=== PATIENT | male | born 1960 | race Caucasian/White ===

== ENCOUNTER 2016-06-06 08:47 | Emergency (ER) | payer OTHER ==
[2016-06-06 09:10] VITALS: BP 178/108
--- NOTE | 2016-06-06 09:37 | UC ---
FLU HPI - HPI Summary HPI Summary: fever, body aches, sinus pain, mild ST, dry cough for past 4 days. Fever to 102. "I feel terrible." Fatigue. Poor appetite. No vomiting or diarrhea - History of Current Complaint Chief Complaint: UCRespiratory Stated Complaint: SINUS,SORE THROAT Time Seen by Provider: 06/06/16 09:01 Hx Obtained From: Patient Onset/Duration: Gradual Onset, Lasting Days - 4 Severity Currently: Moderate Severity Initially: Moderate Associated Signs & Symptoms: Positive: Fever, T Max - 102, Myalgia, Cough, Nasal Congestion, Headache Related Hx: Possible Flu/Infectious Exposure - "everyone sick at work" - Risk Factors Influenza Risk Factors: Negative - Allergy/Home Medications Allergies/Adverse Reactions: Allergies Allergy/AdvReac Type Severity Reaction Status Date / Time No Known Allergies Allergy Verified 06/06/16 08:52 Home Medications: Home Medications [id number] [Night Time Multi-Symptom] 1 cap PO BEDTIME PRN 06/06/16 [History Confirmed 06/06/16] Phenylephrine-Chlorpheniramine [[place]-[place] Plus Cold &] 1 tab PO PRN 06/06/16 [History] Vit D 1 tab PO DAILY 06/06/16 [History] metFORMIN* [Glucophage*] 1,000 mg PO BID 06/06/16 [History Confirmed 06/06/16] PMH/Surg Hx/FS Hx/Imm Hx Endocrine History Of: Reports: Diabetes - Surgical History Surgical History: Yes Surgery Procedure, Year, and Place: LEFT KNEE SURGERY - Family History Known Family History: Positive: Diabetes - Social History 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 Lives: With Family Alcohol Use: Occasionally Substance Use Type: None Smoking Status (MU): Never Smoked Tobacco Type: Smokeless Tobacco - Immunization History Most Recent Influenza Vaccination: NOT THIS SEASON Review of Systems Constitutional: Fever, Chills, Fatigue Skin: Negative Eyes: Negative ENT: Sore Throat, Nasal Discharge Respiratory: Cough Cardiovascular: Negative Gastrointestinal: Negative Genitourinary: Negative Motor: Negative Neurovascular: Negative Musculoskeletal: Myalgia Neurological: Headache Psychological: Negative All Other Systems Reviewed And Are Negative: Yes Physical Exam Triage Information Reviewed: Yes Appearance: Well-Appearing, No Pain Distress, Well-Nourished Vital Signs: Initial Vital Signs Temp 99 F 06/06/16 08:54 Pulse 100 01/15/17 08:54 Resp 16 06/06/16 08:54 BP 178/108 06/06/16 08:54 Pulse Ox 97 06/06/16 08:54 Vital Signs Reviewed: Yes Eye Exam: Normal Eyes: Positive: Conjunctiva Clear ENT Exam: Normal Neck exam: Normal Neck: Positive: Supple, Nontender, No Lymphadenopathy Respiratory Exam: Normal Respiratory: Positive: Lungs clear Cardiovascular Exam: Normal Abdomen Description: Positive: Nontender Musculoskeletal Exam: Normal Neurological Exam: Normal Neurological: Positive: Alert, Muscle Tone Normal Psychological Exam: Normal Diagnostics - Laboratory Diagnostic Studies Completed/Ordered: influenza positive Flu Course/Dx - Differential Dx/Diagnosis Differential Diagnosis/HQI/PQRI: Influenza, Upper Respiratory Infection Provider Diagnoses: influenza Discharge - Discharge Plan Condition: Stable Disposition: HOME Prescriptions: Oseltamivir CAP* [Tamiflu CAP*] 75 mg PO BID #14 cap Patient Education Materials: Influenza (ED) Forms: *Work Release Referrals: BRANDON Fountain [Primary Care Provider] -
== END 2016-06-06 09:40 | disposition home or self-care (01) ==
LOC: UCCORT 08:47
DX: J11.1 Influenza due to unidentified influenza virus with other respiratory manifestations (principal); E11.9 Type 2 diabetes mellitus without complications; Z79.84 Long term (current) use of oral hypoglycemic drugs
CPT/HCPCS: 87502; 99211; G0463

== ENCOUNTER 2018-04-23 08:42 | Emergency (ER) | payer OTHER ==
[2018-04-23 08:57] VITALS: BP 155/102
--- NOTE | 2018-04-23 09:38 | UC ---
FLU HPI - HPI Summary HPI Summary: Pt presents with c/o gradual onset of chills, nausea, vomiting, nasal congestion ,sinus pressure, left ear ache X 3-4 days. - History of Current Complaint Chief Complaint: UCGeneralIllness Stated Complaint: SINUSES/STOMACH ACHE Time Seen by Provider: 04/23/18 08:52 Hx Obtained From: Patient Onset/Duration: Gradual Onset, Lasting Days Severity Currently: Mild Severity Initially: Moderate Pain Intensity: 6 Associated Signs & Symptoms: Positive: Myalgia, Sore Throat, Nasal Congestion Related Hx: Possible Flu/Infectious Exposure - Risk Factors Influenza Risk Factors: Negative - Allergy/Home Medications Allergies/Adverse Reactions: Allergies Allergy/AdvReac Type Severity Reaction Status Date / Time No Known Allergies Allergy Verified 04/23/18 08:57 Home Medications: Home Medications Empagliflozin/Metformin HCl [Synjardy 12.5-500 mg Tablet] 1 mg PO DAILY [History Confirmed 04/23/18] Lisinopril TAB* [Prinivil TAB 5 MG*] 5 mg PO DAILY 04/23/18 [History Confirmed 04/23/18] PMH/Surg Hx/FS Hx/Imm Hx Previously Healthy: Yes - Surgical History Surgical History: Yes Surgery Procedure, Year, and Place: LEFT KNEE SURGERY - Family History Known Family History: Positive: Diabetes - Social History Occupation: Employed Full-time Lives: With Family Alcohol Use: Occasionally Substance Use Type: None Smoking Status (MU): Never Smoked Tobacco Type: Smokeless Tobacco Have You Smoked in the Last Year: No - Immunization History Most Recent Influenza Vaccination: NOT THIS SEASON Vaccination Up to Date: No Review of Systems All Other Systems Reviewed And Are Negative: Yes Constitutional: Positive: Chills, Fatigue Skin: Positive: Negative Eyes: Positive: Negative ENT: Positive: Sore Throat, Ear Ache, Sinus Congestion, Sinus Pain/Tenderness Respiratory: Positive: Cough Cardiovascular: Positive: Negative Gastrointestinal: Positive: Negative Genitourinary: Positive: Negative Motor: Positive: Negative Neurovascular: Positive: Negative Musculoskeletal: Positive: Negative Neurological: Positive: Negative Psychological: Positive: Negative Is Patient Immunocompromised?: No Physical Exam Triage Information Reviewed: Yes Appearance: Ill-Appearing Vital Signs: Initial Vital Signs Temp 98.3 F 04/23/18 08:55 Pulse 88 04/23/18 08:55 Resp 15 04/23/18 08:55 BP 155/102 04/23/18 08:55 Pulse Ox 99 04/23/18 08:55 Vital Signs Reviewed: Yes Eye Exam: Normal ENT: Positive: Nasal congestion, Sinus tenderness, Other - left ear cerumen impaction and cerumen removal Dental Exam: Normal Neck exam: Normal Respiratory Exam: Normal Cardiovascular Exam: Normal Musculoskeletal Exam: Normal Neurological Exam: Normal Psychological Exam: Normal Skin Exam: Normal Flu Course/Dx - Differential Dx/Diagnosis Differential Diagnosis/HQI/PQRI: Influenza Provider Diagnosis: Impacted cerumen, left ear, Sinusitis Discharge - Sign-Out/Discharge Documenting (check all that apply): Patient Departure All imaging exams completed and their final reports reviewed: No Studies - Discharge Plan Condition: Stable Disposition: HOME Prescriptions: Amoxicillin PO (*) [Amoxicillin 875 MG (*)] 875 mg PO Q12H #20 tab Chlorpheniramine/Dextromethorp [Coricidin Hbp Cough & Cold Tab] 1 each PO Q8H # 15 tablet Patient Education Materials: Sinusitis (ED), Cerumen Impaction (ED) Referrals: Rodger Dukes PA [Primary Care Provider] - As Soon As Possible - Billing Disposition and Condition Condition: STABLE Disposition: Home
== END 2018-04-23 09:52 | disposition home or self-care (01) ==
LOC: UCCORT 08:42
DX: H61.22 Impacted cerumen, left ear (principal); J32.9 Chronic sinusitis, unspecified
CPT/HCPCS: 99213; G0463